=== PATIENT | female | born 2005 | race Caucasian/White ===

== ENCOUNTER 2024-09-08 09:31 | Day surgery (SDC) | payer OTHER, SELFPAY ==
--- OUTSIDE RECORDS SUMMARY | 2024-08-27 14:05 | XMS_ITS | Encounter Summary ---
Author Organization [facility] Address [address] [place] [address] Phone Care Team Providers Care Tile Setter Apprentice Name Role Phone Lizeth Huang MD Primary Care Provider [phone] Reason for Visit * Reason Comments Med Refill Encounter Details Date Type Department Care Team (Late st Contact Info) Description 06/30/2019 Refill [facility] - [place] [address] [place], [place] [id number] Felicitas Hsieh MD [address] [place] [address] Current moderate episode of major depressive disorder without prior episode Social History Tobacco Use Types Packs/Day Years Used Date Smoking Tobacco: Never Smokeless Tobacco: Never Hunger/Food Answer Date Recorded No 05/12/2018 Stable Housing Answer Date Recorded No 03/27/2019 Transportation Concerns Answer Date Rec orded No 05/12/2018 Hazards in Home Answer Date Recorded No 05/12/2018 Financing Utilities Answer Date Recorde d No 05/12/2018 Safety at Home Answer Date Recorded No 05/12/2018 Outside Support Answer Date Recorded No 05/12/2018 Understanding Health Concerns Answer Da te Recorded No 05/12/2018 Financing Health Concerns Answer Date R ecorded No 05/12/2018 Missing School or Work Answer Date Jagdeep rded No 05/12/2018 Comments No Sex and Gender Information Value Date Recorded Sex Assigned at Not on file Legal Sex Female 6:14 PM EDT Gender Identity Not on file Sexual Orientation Don't know 11/08/2022 9: 10 AM EDT documented as of this encounter Miscellaneous Notes * Telephone Encounter - Qing Oro LPN - 07/06/2019 11:55 AM EDT Last filled 06/22 sertraline documented in this encounter Plan of Treatment Not on file documented as of this encounter Visit Diagnoses Diagnosis Current moderate episode of major depressive disorder without prior episode documented in this encounter Care Teams Tile Setter Apprentice Relationship Specialty Start Date End Date Lizeth Huang MD [address] [place] [address] PCP - General Pediatrics 03/04/22 09/30/23 documented as of this encounter
[2024-09-08] VITALS (7 sets, daily range): BP systolic 98–109; BP diastolic 59–70; PULSE 57–71; RESP 14–16; TEMP 36.6; O2SAT 96–98; BMI 35.3
--- NOTE | ~2024-09-08 | FL_ITS ---
EXAMINATION: XR LUMBAR PUNCTURE CLINICAL INFORMATION: Idiopathic Intracranial Hypertension COMPARISON: None available. TECHNIQUE: Following explaining fluoroscopy-guided lumbar puncture procedure, benefits and risk, a written consent was obtained. Patient was placed prone on fluoroscopy table and low back area was cleaned and draped in usual sterile manner. 1% lidocaine was injected at puncture site. A 20-gauge spinal needle was inserted from the left para midline region intrathecally at the L4-5 disc level. After observing CSF return patient was quickly placed in left lateral decubitus view and opening CSF pressure was obtained. Subsequently clear CSF fluid was collected in 4 test tubes and stylet was reintroduced. The needle was then removed. Complete hemostasis was achieved at puncture site. Sterile Band-Aid applied postprocedure. Patient tolerated procedure extremely well. FINDINGS: On preliminary images obtained visualized lumbar vertebral heights , alignment and disc heights are normal. There is a needle positioned at the L4-5 disc level on this image. Opening CSF pressure was 20 cm of water. Approximately 18 mL of clear CSF collected and sent to lab as per referring physician's orders. FLUOROSCOPY TIME: 8 seconds. DOSE AREA PRODUCT: 348.5 uGy-m2 (microgray-meter squared) FL/FL guided lumbar puncture LP IMPRESSION: Successful fluoroscopy-guided left para midline L4-5 lumbar puncture performed as described above.. Electronically signed by: Fabio Villafana MD 09/08/2024 02:05 PM EDT
[2024-09-08 10:28] LABS: MANUAL DIFF FLAG NO
[2024-09-08 10:34] LABS: Basophils Percent Auto 0.4 % (0-2); Eosinophils Absolute Auto 0.1 X10*3/uL (0.0-0.4); Eosinophils Percent Auto 0.8 % (0-4); Hematocrit 39.4 % (37.0-47.0); Hemoglobin 13.2 g/dl (12.0-16.0); Imm Gran Abs Auto 0.02 X10*3/uL (0.00-0.03); Imm Gran Pct Auto 0.3 % (0.0-0.4); Lymphocytes Absolute Auto 2.7 X10*3/uL (1.2-4.9); Lymphocytes Percent Auto 35.3 % (20-40); Mean Corpuscular HGB Conc 33.5 g/dl (31.0-35.0); Mean Corpuscular Hemoglobin 31.1 pg (27.0-33.0); Mean Corpuscular Volume 92.9 fL (80.0-98.0); Mean Platelet Volume 9.7 fL (9.4-12.3); Monocytes Absolute Auto 0.6 X10*3/uL (0.1-1.2); Monocytes Percent Auto 8.2 % (2-11); Neutrophils Absolute Auto 4.2 x10*3/uL (2.0-8.3); Platelet Count 297 X10*3/uL (160-400); Red Blood Count 4.24 X10*6/uL (4.20-5.50); Red Cell Distribution Width 12.6 % (11.0-16.0); White Blood Count 7.5 X10*3/uL (4.8-10.8)
[2024-09-08 10:38] LABS: INTERNATIONAL NORM RATIO 1.1 (0.9-1.1)
[2024-09-08 10:40] LABS: Partial Thromboplastin Time 32.6 SEC (26.0-36.8)
[2024-09-08 10:45] LABS: Anion Gap 12 (12-20); Blood Urea Nitrogen 12 mg/dL (9-16); Calcium 9.3 mg/dL (8.4-10.2); Carbon Dioxide 24 mmol/L (22-29); Chloride 109 mmol/L (96-108); Creatinine Clr Calc Pharmacy 154.8; Estimated Glomerular Filt Rate > 60; Glucose Random 87 mg/dL (60-115); Potassium 3.8 mmol/L (3.3-5.1); Sodium 141 mmol/L (135-145)
[2024-09-08 12:30] LABS: CSF Appearance Clear, Colorless; CSF Tube # 1
[2024-09-08 12:37] LABS: Glucose CSF 53 mg/dL; Total Protein CSF 19.8 mg/dL (15-45)
[2024-09-08 13:05] LABS: Appearance CSF CLEAR; CSF Tube # 4
[2024-09-08 13:06] LABS: Color CSF COLORLESS; Red Blood Cell CSF 0 MM*3; White Blood Cell CSF 0 MM*3
[2024-09-08] MEDS: Acetaminophen 325 MG TABLET 650 MG PO (13:21)
== END 2024-09-08 13:38 | disposition home or self-care (01) ==
PROVIDERS: Radiology Diagnostic Radiology; PCP Internal Medicine; Visit Provider Psychiatry & Neurology Neurology
PROC: 009U3ZZ Drainage of Spinal Canal, Percutaneous Approach (ICD-10-PCS; CPT 62270; principal; 2024-09-08 11:00)
DX: G93.2 Benign intracranial hypertension (principal); R26.9 Unspecified abnormalities of gait and mobility; M54.9 Dorsalgia, unspecified; G44.209 Tension-type headache, unspecified, not intractable; H93.19 Tinnitus, unspecified ear; R11.0 Nausea; R63.5 Abnormal weight gain; F32.A Depression, unspecified; F41.9 Anxiety disorder, unspecified; Z79.899 Other long term (current) drug therapy
CPT/HCPCS: 36415; 62328; 80048; 82945; 84157; 85025; 85610; 85730; 87015; 87070; 87116; 87205; 87206; 89051; J2003

== ENCOUNTER → 2024-09-08 11:10 | Outpatient (BNV) | payer OTHER, SELFPAY | PROVIDERS: PCP Internal Medicine; Visit Provider Radiology Diagnostic Radiology | DX: G93.2 Benign intracranial hypertension (principal) | CPT/HCPCS: 62328 ==

== ENCOUNTER 2024-09-13 12:45 | Emergency (ER) | payer OTHER, SELFPAY ==
--- NOTE | 2024-09-13 13:02 | ED_ITS ---
HPI - Headache General Chief Complaint: Headache Stated Complaint: Headaches Lumbar Puncture on 09/08/24 Time Seen by Provider: 09/13/24 16:04 History of Present Illness ED Provider: Jose Manuel Norwood MD HPI Narrative: This is a pleasant 19-year-old female who has had a headache for 6 days of different character. She previously has had chronic headaches for many years. She was evaluated about 6 days ago here by Interventional Radiology with a fluoroscopy guided lumbar puncture. She reports a pressure of 20 which was reassuring. Since that time she has had positional changes causing worsening headache particularly in the left side. No vomiting, no fever she has some mild left low back pain when lifting her left leg but otherwise no focal signs or symptoms. She has been laying flat taking ibuprofen as instructed but nothing has been helping. Related Data Home Medications ?Medication ?Instructions ?Recorded ?Confirmed hydroxyzine HCl 10 mg tablet 10 mg PO TID PRN Panic At tack(S) 09/08/24 09/08/24 sertraline 100 mg tablet 100 mg PO DAILY 09/08/24 topiramate 25 mg tablet 25 mg PO DAILY 09/08/2408/22 Allergies Allergy/AdvReac Type Severity Reaction Status Date / Time No Known Allergies Allergy Verified 09/13/24 13:07 [facility] Past Medical History Medical History (Updated 09/14/24 @ 00:01 by Tian Giron) Scoliosis Anxiety Depression Social History Social History Are you a primary residential care facility manager to a significant other at home: No Do you presently have visiting nurse or other home services: No Patient Tobacco Use Status: Never used Tobacco Advance Directives: No Advance Directives Information Provided: No Physical Exam 2 Vital Signs: Vital Signs: Last Vital Signs Temp 98.8 F 09/13/24 20:26 Pulse 94 09/13/24 20:26 Resp 18 09/13/24 20:26 BP 118/83 09/13/24 20:26 Pulse Ox 96 09/13/24 20:26 O2 Del Method Room Air 09/13/24 20:26 BMI result Body Mass Index 35.8 Const: Other: GENERAL: Well appearing. No apparent distress. Alert. HEAD/NECK: Normal to inspection. Neck supple. No cervical lymphadenopathy. EYES: Normal to inspection. Sclera non-icteric. ENMT: External nose normal. RESPIRATORY: Respiratory effort normal. Lungs clear to auscultation bilaterally. CARDIOVASCULAR: Regular rate. Normal rhythm. No murmur. No rubs. GI: Soft, non-tender, non-distended. No rebound or guarding. No masses palpable. No hepatosplenomegaly. SKIN: No jaundice. NEUROLOGICAL: Alert. PSYCHIATRIC: Alert. Appearance appropriate for situation. Attitude cooperative. OTHER: Comprehensive Neuro exam: Face symmetric, tongue midline, strong symmetric eye closure, pupils symmetric and reactive to light, intact sensation to the face throughout, intact strong face deviation and shoulder shrug. Sensation intact to light touch throughout * 5 out of 5 strength in bilateral upper extremities, 5 and 5 strength in lower extremities Course Course Course Narrative: This is an RME: Additional HPI, ROS, PE not included below will be deferred to primary provider. RME assessment and note performed by: Josseline Vargas PA-C This is a 27-bfss-rjf-female, with a hx of headaches, who presents to the ER with a complaint of headache s/p lumbar puncture on 09/08. Reporting since Friday she has had severe headaches. No vomiting. She went to [facility] where they did a LP. She had a diagnostic LP for intracranial hypertension Plan: Labs, further ER eval needed Medications Administered Discontinued Medications Generic Name Dose Route Start Last Admin Trade Name Freq PRN Reason Stop Dose Admin Acetaminophen/Butalbital/Caffeine 1 tab 09/13/24 17:25 09/13/24 17:33 Butalb/Acetamin/Caff 50/325/40 Tablet PO 09/13/24 17:26 1 tab ONCE ONE Administration Dexamethasone Sodium Phosphate 10 mg 09/13/24 16:19 09/13/24 16:47 Dexamethasone Sod Phosphate 10 Mg/Ml Vial IVPUSH 09/13/24 16:20 10 mg ONCE ONE Administration Lactated Ringer's 2,000 mls @ 999 mls/hr 09/13/24 16:30 09/13/24 16:47 Lr IV 09/13/24 18:30 999 mls/hr .Q2H1M CHRISTO Administration Ketorolac Tromethamine 15 mg 09/13/24 16:19 09/13/24 16:47 Ketorolac Tromethamine 15 Mg/Ml Vial IVPUSH 09/13/24 16:20 15 mg ONCE ONE Administration Metoclopramide HCl 10 mg 09/13/24 16:19 09/13/24 16:47 Metoclopramide Hcl 10 Mg/2 Ml Vial IVPUSH 09/13/24 16:20 10 mg ONCE ONE Administration Medical Decision Making Medical Decision Making [facility] Narrative: 19-year-old female with likely post LP headache. Multimodal analgesia including recommended butalbital by anesthesia. Patient was aggressively hydrated. Dr. Causey was consulted he performed blood patch at the bedside. The patient reported relief. Differential Diagnosis Differential Diagnoses: The differential diagnosis associated with the presentation includes Post lumbar puncture headache, dural CSF leak, less likely bleeding or infection given no signs or symptoms to suggest this Admission/Observation Consideration of admission/observation: Escalation of care including admission/observation considered Consult Healthcare Provider Management of the patient was discussed with: Recreation Specialist (Anesthesia was consulted see their documentation they performed blood patch) Lab Data [facility] Lab Attestation statement: I reviewed the patient's lab results. 09/13/24 14:17 09/13/24 14:17 Labs: Lab Results 09/13/24 Range/Units 14:17 WBC 9.5 (4.8-10.8) X10*3/uL RBC 4.54 (4.20-5.50) X10*6/uL Hgb 14.0 (12.0-16.0) g/dl Hct 41.3 (37.0-47.0) % MCV 91.0 (80.0-98.0) fL MCH 30.8 (27.0-33.0) pg MCHC 33.9 (31.0-35.0) g/dl RDW 13.0 (11.0-16.0) % Plt Count 317 (160-400) X10*3/uL MPV 9.5 (9.4-12.3) fL Immature Gran % (Auto) 0.4 (0.0-0.4) % Neut % (Auto) 70.3 (45-73) % Lymph % (Auto) 22.9 (20-40) % [place] % (Auto) 5.5 (2-11) % Eos % (Auto) 0.6 (0-4) % Baso % (Auto) 0.3 (0-2) % Lymph # (Auto) 2.2 (1.2-4.9) X10*3/uL [place] # (Auto) 0.5 (0.1-1.2) X10*3/uL Eos # (Auto) 0.1 (0.0-0.4) X10*3/uL Baso # (Auto) 0.0 (0.0-0.2) X10*3/uL Abs Immat Gran (auto) 0.04 H (0.00-0.03) X10*3/uL Absolute Neuts (auto) 6.6 (2.0-8.3) x10*3/uL Absolute Nucleated RBC 0.000 (0.0-0.012) X10*3/uL Nucleated RBC % (auto) 0.0 (0.0-0.2) /100WBC PT 12.2 (10.9-12.4) SEC INR 1.1 (0.9-1.1) APTT 33.2 (26.0-36.8) SEC Sodium 141 (135-145) mmol/L Potassium 4.2 (3.3-5.1) mmol/L Chloride 110 H (96-108) mmol/L Carbon Dioxide 23 (22-29) mmol/L Anion Gap 12 (12-20) BUN 6 L (9-16) mg/dL Creatinine 0.53 (0.5-1.4) mg/dL Estim Creat Clear Calc 161.8 Estimated GFR > 60 Random Glucose 114 (60-115) mg/dL Calcium 9.6 (8.4-10.2) mg/dL Total Bilirubin 0.3 (0.0-1.0) mg/dL Direct Bilirubin 0.1 (0.0-0.5) mg/dL AST 15 (5-31) U/L ALT 21 (0-31) U/L Alkaline Phosphatase 111 (39-117) U/L Total Protein 7.2 (6.5-8.0) g/dL Albumin 4.6 (3.5-5.0) g/dL Beta HCG, Quant < 2 mIU/mL Discharge Plan Discharge Clinical Impression: Post lumbar puncture headache Patient Disposition: Home, Self-Care Instructions: Epidural Blood Patch (DC), Lumbar Puncture (ED) Additional Instructions: _ DISCHARGE DIAGNOSES: Post lumbar puncture headache, you received a blood patch as treatment in the emergency department HISTORY OF PRESENTATION: ?Headache for about 6 days since lumbar puncture EMERGENCY DEPARTMENT COURSE,TESTS, TREATMENTS: While in the ED today you received 2 L of lactated ringer IV fluids. He received multiple medications including dexamethasone a steroid, ketorolac nonsteroidal anti-inflammatory, metoclopramide headache and nausea agent and butalbital which contains caffeine and acetaminophen. You received a blood patch from Anesthesiology DISCHARGE MEDICATIONS: ?[We have made no changes to your regular medication regimen] FOLLOW-UP: ?Call your primary or general physician soon as possible to discuss your symptoms, your ED visit and to discuss follow up plans Call Neurology for follow up INSTRUCTIONS ?& RETURN PRECAUTIONS: If any symptoms change first call your primary physician, if it is after-hours your primary doctors office should have a provider solar consultant you can speak with. If the symptoms are severe or very concerning to you then call 911 or return to the ED. Drink plenty of fluids call for severe worsening headache very stiff neck high fevers or other symptoms that are acute and severe Jose Manuel Norwood MD Emergency Physician [facility] Prescriptions: No Action sertraline 100 mg tablet 100 mg PO DAILY topiramate 25 mg tablet 25 mg PO DAILY hydroxyzine HCl 10 mg tablet 10 mg PO TID PRN (Reason: Panic Attack(S)) Interventions: ED Discharge Assessment Last Done: 09/13/24 20:26 Discharge Date/Time: 09/13/24 20:28 Print Language: Uzbek
[2024-09-13 13:04] VITALS: BP 120/70; PULSE 89; RESP 18; TEMP 36.8; O2SAT 98; BMI 35.8
[2024-09-13 14:22] LABS: MANUAL DIFF FLAG NO
[2024-09-13 14:27] LABS: Basophils Percent Auto 0.3 % (0-2); Eosinophils Absolute Auto 0.1 X10*3/uL (0.0-0.4); Eosinophils Percent Auto 0.6 % (0-4); Hematocrit 41.3 % (37.0-47.0); Imm Gran Abs Auto 0.04 X10*3/uL (0.00-0.03); Imm Gran Pct Auto 0.4 % (0.0-0.4); Lymphocytes Absolute Auto 2.2 X10*3/uL (1.2-4.9); Lymphocytes Percent Auto 22.9 % (20-40); Mean Corpuscular HGB Conc 33.9 g/dl (31.0-35.0); Mean Corpuscular Hemoglobin 30.8 pg (27.0-33.0); Mean Platelet Volume 9.5 fL (9.4-12.3); Monocytes Absolute Auto 0.5 X10*3/uL (0.1-1.2); Monocytes Percent Auto 5.5 % (2-11); Neutrophils Absolute Auto 6.6 x10*3/uL (2.0-8.3); Neutrophils Percent Auto 70.3 % (45-73); Platelet Count 317 X10*3/uL (160-400); Red Blood Count 4.54 X10*6/uL (4.20-5.50); White Blood Count 9.5 X10*3/uL (4.8-10.8)
[2024-09-13 14:37] LABS: INTERNATIONAL NORM RATIO 1.1 (0.9-1.1); Prothrombin Time 12.2 SEC (10.9-12.4)
[2024-09-13 14:39] LABS: Partial Thromboplastin Time 33.2 SEC (26.0-36.8)
[2024-09-13 14:46] LABS: Alanine Aminotransferase 21 U/L (0-31); Albumin Level 4.6 g/dL (3.5-5.0); Alkaline Phosphatase 111 U/L (39-117); Anion Gap 12 (12-20); Aspartate Amino Transferase 15 U/L (5-31); Bilirubin Direct 0.1 mg/dL (0.0-0.5); Bilirubin Total 0.3 mg/dL (0.0-1.0); Blood Urea Nitrogen 6 mg/dL (9-16); Calcium 9.6 mg/dL (8.4-10.2); Carbon Dioxide 23 mmol/L (22-29); Chloride 110 mmol/L (96-108); Creatinine Clr Calc Pharmacy 161.8; Estimated Glomerular Filt Rate > 60; Glucose Random 114 mg/dL (60-115); HCG Quantitative < 2 mIU/mL; Potassium 4.2 mmol/L (3.3-5.1); Sodium 141 mmol/L (135-145); Total Protein 7.2 g/dL (6.5-8.0)
[2024-09-13 15:44] VITALS: BP 111/59; PULSE 71; RESP 16; TEMP 36.3; O2SAT 97
[2024-09-13] MEDS: Lactated Ringers 2,000 ML 999 ML IV (16:47)
[2024-09-13] MEDS: dexAMETHasone sod phosphate 10 MG/ML VIAL IVPUSH (16:47)
[2024-09-13] MEDS: Ketorolac Tromethamine 15 MG/ML VIAL IVPUSH (16:47)
[2024-09-13] MEDS: Metoclopramide HCl 10 MG/2 ML VIAL IVPUSH (16:47)
--- OUTSIDE RECORDS SUMMARY | 2024-09-13 17:17 | XMS_ITS | Encounter Summary ---
Author Organization [facility] Address [address] [place] [address] Phone Care Team Providers Care Mapping Pilot Name Role Phone Lizeth Huang MD Primary Care Provider [phone] Reason for Visit * Reason Comments Med Refill Encounter Details Date Type Department Care Team (Late st Contact Info) Description 06/30/2019 Refill [facility] - [place] [address] [place], [place] [phone] Felicitas Hsieh MD [address] [place] [address] Current moderate episode of major depressive disorder [...] episode documented in this encounter Care Teams Mapping Pilot Relationship Specialty Start Date End Date Lizeth Huang MD [address] [place] [address] PCP - General Pediatrics 03/04/22 09/30/23 documented as of this encounter
[2024-09-13] MEDS: Butalb/Acetamin/Caff 50/325/40 TABLET 1 TAB PO (17:33)
--- NOTE | 2024-09-13 18:43 | PC.NURSE ---
accompanied dr cornelius for blood patch procedure, pt on full telemetry monitoring, post procedure is now headache free. VSS. AA&Ox4.
[2024-09-13 18:44] VITALS: BP 121/81; PULSE 92; RESP 15; O2SAT 97
--- NOTE | 2024-09-13 18:55 | PM.ANESPROC ---
Procedures Date of Service Date of Service: 09/13/24 Abscess I/D Consent for Procedure: Elective - informed consent obtained Site: back Sedation/analgesia: none Anesthetic used: lidocaine 1% Lumbar Puncture Lumbar Puncture Comments: Lumbar epidural blood patch for intractable, positional postdural spinal headache for six days. Sitting up ignites severe, left sided XIAO radiating to the back of the neck. After ED medicated her, her XIAO was 6/10 only , less than at home. She had to stay in bed since her spinal tap. Consent for Procedure: Elective - informed consent obtained Time out performed: Yes Patient position: other (sitting) Skin prep: Povidone-Iodine 1% Local anesthetic used: Lidocaine 1% Amount of anesthesia used (ml): 5 Interspace used: L3-L4 (#18g Tuohy needle, epidural space at 5 cm deep w JJ, then 14 ml blood was drawn from R antecub. vein and injected in epidural space.Xiao disappered, no immediate compl.e) Complications: none
[2024-09-13 19:02] VITALS: BP 110/67; PULSE 76; RESP 14; TEMP 36.6; O2SAT 94
[2024-09-13 20:19] VITALS: BP 118/83; PULSE 94; RESP 18; TEMP 37.1; O2SAT 96
[2024-09-13 20:26] VITALS: BP 118/83; PULSE 94; RESP 18; TEMP 37.1; O2SAT 96
== END 2024-09-13 20:28 | disposition home or self-care (01) ==
PROVIDERS: Physician Assistant Medical; Emergency Provider Emergency Medicine; PCP Internal Medicine
DX: G97.1 Other reaction to spinal and lumbar puncture (principal); R51.9 Headache, unspecified; R10.2 Pelvic and perineal pain; M54.50 Low back pain, unspecified; Z79.899 Other long term (current) drug therapy
CPT/HCPCS: 36415; 80048; 80076; 84702; 85025; 85610; 85730; 96374; 96375; 99284; J1100; J1885; J2765; J7120

== ENCOUNTER 2024-09-27 10:32 | Outpatient (AMB) | payer OTHER, SELFPAY ==
--- NOTE | 2024-09-27 10:34 | A.OFFVIS_ITS ---
Intake Visit Reasons: f/u after LP Allergies No Known Allergies Allergy (Verified 09/13/24 13:07) HPI Comments Details: 19 years old right-handed woman, initially seen in July of 2024 for an abnormal MRI of brain. She was having headaches for as long as she could remember.? She started taking amitriptyline probably in 2022.? During this time, she has gained some weight.? She noted worsening of headaches during at least half days in a month.? Pain was bifrontal and behind the eyes, a radiating type, worse with light, associated with nausea and could last for hours.? There was no double vision or loss of vision.? Coughing or sneezing could make her headache worse.? Did not create headache.? She also complained of ringing in her ear.she had complained of back pain with previous history of head injury and had MRI of the whole spine done, which did not reveal any significant pathology.? MRI of brain was done that revealed multiple findings suggestive of high intracranial pressure. Lumbar puncture at [facility] in August of 2024 revealed opening pressure of 20 cm with CSF protein of 19 and otherwise no significant abnormality. Unfortunately it resulted in spinal headache and she had to have a blood patch to counter that headache. Now, her overall headache burden has decreased and she was taking topiramate 25 mg a day. [facility] Medical History (Updated 09/27/24 @ 10:44 by Joseph Marino MD) Idiopathic intracranial hypertension Scoliosis Anxiety Depression Family History (Updated 09/22/24 @ 18:20 by Hannah Ulrich MA) Father Headache Social History Are you a primary care nurse rn to a significant other at home: No Do you presently have visiting nurse or other home services: No Patient Tobacco Use Status: Never used Tobacco Review of Systems Const Details: Constitutional:?No fever, chills, fatigue, weight loss, or night sweats. HEENT:?No headache, vision changes, hearing loss, nasal congestion, sore throat. Neurological:?No dizziness, syncope, seizures, numbness, tingling, weakness, tremors, memory loss. Psychiatric:?No anxiety, depression, mood swings, sleep disturbance, or hallucinations. Endocrine:?No heat/cold intolerance, polydipsia, polyuria, or hair/skin changes. Hematologic/Lymphatic:?No easy bruising, bleeding, or lymphadenopathy. Integumentary (Skin):?No rash, lesions, itching, or color changes. ? Physical Exam Neuro Other: Mental Status: Alert and oriented to person, place, and time. Normal attention. Normal spontaneous speech, fluency, and comprehension. No obvious issues with mood and memory. Affect is appropriate. Cranial Nerves: CN II: Visual marrero full to confrontation, visual acuity intact. CN III, IV, : Pupils equal, round, reactive to light and accommodation. Extraocular movements are normal. CN V: Facial sensation is normal. CN VII: Facial movements symmetrical. CN VIII: Hearing intact to bedside conversation is normal. CN IX, X: Palate elevates symmetrically. CN XI: Shoulder shrug and head turn symmetrical. CN XII: Tongue midline without atrophy or fasciculations. Motor: Bulk and tone normal in all extremities. No significant muscle weakness in arms and legs. No drift. Reflexes: Deep tendon reflexes 2+ and symmetric. Plantar response down-going bilaterally. Coordination: [id number] and [id number]-jq-[id number] testing normal. No dysmetria. Gait and Station: No obvious gait abnormality. No ataxia or instability. Sensory: Intact to light touch, pinprick, and vibration. Romberg is negative. Extrapyramidal: Full facial expressions and blinking. No rigidity. Movements are appropriate with no tremor or abnormality. Speech: Normal; no dysarthria or tremor. Assessment & Plan Assessment & Plan (1) Migraine without aura: Comment: Meds tried: Amitryptiline, topiramate MRI brain [facility]WO at [facility] in May 2024: Empty sella, mild bifrontal cortical atrophy MRI C + T + L spine at [facility] in May 2024: No sig finding (reported) LP at [facility] in August 2024: OP 20cm, WBCs 0, RBCs 0, Glu 57, Pro 19 Code(s): G43.009 - Migraine without aura, not intractable, without status migrainosus Category: Medical Qualifiers: Status migrainosus presence: without status migrainosus Intractability: intractable Qualified Code(s): G43.019 - Migraine without aura, intractable, without status migrainosus Plan At this time there was no evidence of high intracranial pressure. Headaches were probably migraine type as her imaging was okay not providing any other explanation. She was advised to increase dose of topiramate 250 mg a day as it was already helping. Medications: New topiramate 50 mg PO DAILY 90 tabs 0RF 90 days Coding Level of Care Code Est Pt Level 4 (70718) Diagnoses Intractable migraine without aura and without status migrainosus G43.019 Status migrainosus presence: without status migrainosus Intractability: intractable
--- OUTSIDE RECORDS SUMMARY | 2024-09-27 11:22 | XMS_ITS | Encounter Summary ---
Author Organization [facility] Address [address] [place] [address] Phone Care Team Providers Care Second Cook And Baker Name Role Phone Lizeth Huang MD Primary Care Provider [phone] Reason for Visit * Reason Comments Med Refill Encounter Details Date Type Department Care Team (Late st Contact Info) Description 06/30/2019 Refill [facility] - [place] [address] [place], [place] [phone] Felicitas Hsieh MD [address] [place] [address] Current moderate episode of major depressive disorder [...] episode documented in this encounter Care Teams Second Cook And Baker Relationship Specialty Start Date End Date Lizeth Huang MD [address] [place] [address] PCP - General Pediatrics 03/04/22 09/30/23 documented as of this encounter
== END 2024-09-27 10:51 | disposition home or self-care (01) ==
LOC: HO.HSM 10:33
PROVIDERS: PCP Internal Medicine; Visit Provider Psychiatry & Neurology Neurology
DX: G43.019 Migraine without aura, intractable, without status migrainosus (principal)
CPT/HCPCS: 99214

== ENCOUNTER 2025-02-14 15:28 | Outpatient (AMB) | payer BC, SELFPAY ==
--- NOTE | 2025-02-14 15:38 | A.OFFVIS_ITS ---
Intake Visit Reasons: 2M MIGRAINE Allergies No Known Allergies Allergy (Verified 09/13/24 13:07) HPI Comments Details: 19 years old right-handed woman with migraine without aura. She is presenting for follow-up on headache management. The patient has been taking a 50 mg pill at night as a prophylactic measure, which initially provided some relief, but the headaches have since returned. The patient reports using Excedrin for acute headache treatment. The patient has also noticed an increased pressure behind the eyes over the past week. The patient denies . [facility] Medical History (Updated 02/14/25 @ 15:45 by Joseph Marino MD) Idiopathic intracranial hypertension Scoliosis Anxiety Depression Family History (Updated 09/22/24 @ 18:20 by Hannah Ulrich MA) Father Headache Social History Are you a primary patient care director to a significant other at home: No Do you presently have visiting nurse or other home services: No Patient Tobacco Use Status: Never used Tobacco Review of Systems Narrative - Neurological: Reports recurrent headaches and increased pressure behind the eyes within the last week. Physical Exam Neuro Other: Mental Status: Alert and oriented to person, place, and time. Normal attention. Normal spontaneous speech, fluency, and comprehension. Cranial Nerves: CN II: Visual marrero full to confrontation, visual acuity intact. CN III, IV, : Pupils equal, round, reactive to light and accommodation. Extraocular movements are normal. CN V: Facial sensation is normal. CN VII: Facial movements symmetrical. CN VIII: Hearing intact to bedside conversation is normal. CN IX, X: Palate elevates symmetrically. CN XI: Shoulder shrug and head turn symmetrical. CN XII: Tongue midline without atrophy or fasciculations. Extrapyramidal: Full facial expressions and blinking. No rigidity. Movements are appropriate with no tremor or abnormality. Speech: Normal; no dysarthria or tremor. Assessment & Plan Assessment & Plan (1) Idiopathic intracranial hypertension: Code(s): G93.2 - Benign intracranial hypertension Category: Medical (2) Migraine without aura: Comment: Meds tried: Amitriptyline, topiramate, smatriptan MRI brain WWO at [facility] in May 2024: Empty sella, mild bifrontal cortical atrophy MRI C + T + L spine at [facility] in May 2024: No sig finding (reported) LP at [facility] in August 2024: OP 20cm, WBCs 0, RBCs 0, Glu 57, Pro 19 Code(s): G43.009 - Migraine without aura, not intractable, without status migrainosus Category: Medical Qualifiers: Status migrainosus presence: without status migrainosus Intractability: intractable Qualified Code(s): G43.019 - Migraine without aura, intractable, without status migrainosus Plan Impression recommendations: 19 years old woman with migraine without aura. Topiramate has made some difference but she was still having some headaches. She was asked to experiment topiramate 50 mg twice a day in try sumatriptan 50 mg as needed. Medications: New sumatriptan succinate 50 mg orally qd prn for headache PRN; do not exceed 4 doses per 24 hrs 10 tabs 5RF migraine headache Changed From topiramate 50 mg PO DAILY 90 days 90 tabs 0RF To topiramate 50 mg PO BID 180 tabs 0RF 90 days Coding Level of Care Code Est Pt Level 3 (58105) Diagnoses Idiopathic intracranial hypertension G93.2 Intractable migraine without aura and without status migrainosus G43.019 Status migrainosus presence: without status migrainosus Intractability: intractable
--- OUTSIDE RECORDS SUMMARY | 2025-02-14 20:04 | XMS_ITS | Encounter Summary ---
Author Organization [facility] Address [address] [place] [address] Phone Care Team Providers Care Web Machine Tender Name Role Phone Lizeth Huang MD Primary Care Provider [phone] Reason for Visit * Reason Onset Date Comments Med Refill 11/27/2020 Encounter Details Date Type Department Care Team (Late st Contact Info) Description 11/27/2020 Refill Pediatric And Adolescent Medicine - [address] [address] Felicitas Hsieh MD [address] [place] [address] Moderate episode of recurrent major depressive disorder Social History Tobacco Use Types Packs/Day Years Used Date Smoking Tobacco: Never Smokeless Tobacco: Never Hunger/Food Answer Date Recorded In the last 12 months, did y ou or your family ever eat less than you felt you should because there wasn't enough money for food? No 07/05/2020 Stable Housing Answer Date Recorded Are you worried that in the next 2 months you may not have stable housing? No 07/05/2020 Transportation Concerns Answer Date Rec orded In the last 12 months, have you or your family ever had to go without healthcare because you didn't have a way to get there? No 07/05/2020 Hazards in Home Answer Date Recorded Think about the place you li ve. Do you have problems with any of the following? Pests (mice or roaches), mold, no/not working smoke detectors, water leaks, no window guards. No 2020 Financing Utilities Answer Date Recorde d In the last 12 months, has t he electric, gas, oil, or water company threatened to shut off your services in your home? No 07/05/2020 Safety at Home Answer Date Recorded Are you or your family worried about feeling saf e in your home? No 07/05/2020 Outside Support Answer Date Recorded Do you feel that you need mo re support from other people or programs to help you care for yourself or your family? No 07/05/2020 Understanding Health Concerns Answer Da te Recorded Do you need help understandi ng your or your child's healthcare needs (diagnosis, medications, plan, etc.)? No 07/05/2020 Financing Health Concerns Answer Date R ecorded In the last 12 months, was t here a time when your child needed to see a doctor or get medications or supplies but could not because of cost? No 07/05/2020 Missing School or Work Answer Date Jagdeep rded Did you or your child miss s chool or work because of a health problem that could have been avoided? No 07/05/2020 Comments No Sex and Gender Information Value Date Recorded Sex Assigned at Not on file Legal Sex Female 6:14 PM EDT Gender Identity Not on file Sexual Orientation Don't know 11/08/2022 9: 10 AM EDT documented as of this encounter Miscellaneous Notes * Telephone Encounter - Enriqueta Sue LPN - 11/29/2020 1:13 PM EDT Duplicate med request--please refuse this one. Other has been routed. documented in this encounter Plan of Treatment Not on file documented as of this encounter Visit Diagnoses Diagnosis Moderate episode of recurrent major depressive disorder documented in this encounter Care Teams Web Machine Tender Relationship Specialty Start Date End Date Lizeth Huang MD [address] [place], [place] [address] [address] PCP - General Pediatrics 03/04/22 09/30/23 documented as of this encounter
--- OUTSIDE RECORDS SUMMARY | 2025-02-14 20:04 | XMS_ITS | Encounter Summary ---
Author Organization [facility] Address [address] [place] [address] Phone Care Team Providers Care Fruit Peeler Name Role Phone Lizeth Huang MD Primary Care Provider [phone] Reason for Visit * Reason Comments Med Refill Encounter Details Date Type Department Care Team (Late st Contact Info) Description 09/11/2021 Refill Pediatric And Adolescent Medicine - [place] [address] [place], [place] [phone] Felicitas Hsieh MD [address] [place] [address] Moderate episode of recurrent major depressive disorder [...] AM EDT documented as of this encounter Plan of Treatment Not on file documented as of this encounter Visit Diagnoses Diagnosis Moderate episode of recurrent major depressive disorder documented in this encounter Care Teams Fruit Peeler Relationship Specialty Start Date End Date Lizeth Huang MD [address] [place] [address] PCP - General Pediatrics 03/04/22 09/30/23 documented as of this encounter
--- OUTSIDE RECORDS SUMMARY | 2025-02-14 20:04 | XMS_ITS | Encounter Summary ---
Author Organization [facility] Address [address] [place] [address] Phone Care Team Providers Care Belt Measurer Name Role Phone Lizeth Huang MD Primary Care Provider [phone] Reason for Visit * Reason Onset Date Comments Med Refill 11/08/2022 Encounter Details Date Type Department Care Team (Late st Contact Info) Description 11/08/2022 Refill Pediatric And Adolescent Medicine - [place] [address] [place] [address] Lizeth Huang MD [address] [place] [address] Moderate episode of recurrent major depressive disorder; Moderate episode of recurrent major depressive disorder Social History Tobacco Use Types Packs/Day Years Used Date Smoking Tobacco: Never Smokeless Tobacco: Never Hunger/Food Answer Date Recorded In the last 12 months, did y ou or your family ever eat less than you felt you should because there wasn't enough money for food? No 11/08/2022 Stable Housing Answer Date Recorded Are you worried that in the next 2 months you may not have stable housing? No 11/08/2022 Transportation Concerns Answer Date Rec orded In the last 12 months, have you or your family ever had to go without healthcare because you didn't have a way to get there? No 11/08/2022 Hazards in Home Answer Date Recorded Think about the place you li ve. Do you have problems with any of the following? Pests (mice or roaches), mold, no/not working smoke detectors, water leaks, no window guards. No 2022 Financing Utilities Answer Date Recorde d In the last 12 months, has t he electric, gas, oil, or water company threatened to shut off your services in your home? No 11/08/2022 Safety at Home Answer Date Recorded Are you or your family worried about feeling saf e in your home? No 11/08/2022 Outside Support Answer Date Recorded Do you feel that you need mo re support from other people or programs to help you care for yourself or your family? No 11/08/2022 Understanding Health Concerns Answer Da te Recorded Do you need help understandi ng your or your child's healthcare needs (diagnosis, medications, plan, etc.)? No 11/08/2022 Financing Health Concerns Answer Date R ecorded In the last 12 months, was t here a time when your child needed to see a doctor or get medications or supplies but could not because of cost? No 11/08/2022 Missing School or Work Answer Date Jagdeep rded Did you or your child miss s chool or work because of a health problem that could have been avoided? No 11/08/2022 Comments No Sex and Gender Information Value Date Recorded Sex Assigned at Not on file Legal Sex Female 6:14 PM EDT Gender Identity Not on file Sexual Orientation Don't know 11/08/2022 9: 10 AM EDT documented as of this encounter Miscellaneous Notes * Telephone Encounter - Marisela Merida RN - 11/08/2022 9:52 AM EDT Per today's visit note, she is due to travel to [facility]. Pharmacy note is asking for a year's supply of hydroxyzine and sertraline. To for review documented in this encounter Plan of Treatment Not on file documented as of this encounter Visit Diagnoses Diagnosis Moderate episode of recurrent major depressive disorder documented in this encounter Care Teams Belt Measurer Relationship Specialty Start Date End Date Lizeth Huang MD [address] [place] [address] PCP - General Pediatrics 03/04/22 09/30/23 documented as of this encounter
--- OUTSIDE RECORDS SUMMARY | 2025-02-14 20:04 | XMS_ITS | Encounter Summary ---
Author Organization [facility] Address [address] [place] [address] Phone Care Team Providers Care Tonsorial Artist Name Role Phone Lizeth Huang MD Primary Care Provider [phone] Reason for Visit * Reason Comments Med Refill Encounter Details Date Type Department Care Team (Late st Contact Info) Description 11/09/2019 Refill Pediatric And Adolescent Medicine - [place] [address] [place], [place] [phone] Felicitas Hsieh MD [address] [place] [address] Generalized anxiety disorder Social History Tobacco Use Types Packs/Day [...] encounter Miscellaneous Notes * Telephone Encounter - Renee Elizondo RN - 11/09/2019 2:46 PM EDT Dosage changed to 100 mg at last visit documented in this encounter Plan of Treatment Not on file documented as of this encounter Visit Diagnoses Diagnosis Generalized anxiety disorder documented in this encounter Care Teams Tonsorial Artist Relationship Specialty Start Date End Date Lizeth Huang MD [address] [facility] [place] [address] PCP - General Pediatrics 03/04/22 09/30/23 documented as of this encounter
--- OUTSIDE RECORDS SUMMARY | 2025-02-14 20:04 | XMS_ITS | Encounter Summary ---
Author Organization [facility] Address [address] [place] [address] Phone Care Team Providers Care Stator Connector Name Role Phone Lizeth Huang MD Primary Care Provider [phone] Reason for Visit * Reason Comments Med Refill Encounter Details Date Type Department Care Team (Late st Contact Info) Description 06/30/2019 Refill Pediatric And Adolescent Medicine - [place] [address] [place], [place] [phone] Felicitas Hsieh MD [address] [place] [address] Current moderate episode of major depressive disorder [...] episode documented in this encounter Care Teams Stator Connector Relationship Specialty Start Date End Date Lizeth Huang MD [address] [place] [address] PCP - General Pediatrics 03/04/22 09/30/23 documented as of this encounter
--- OUTSIDE RECORDS SUMMARY | 2025-02-14 20:04 | XMS_ITS | Encounter Summary ---
Author Organization [facility] Address [address] [place] [address] Phone Care Team Providers Care Radio Tower Technician Name Role Phone Lizeth Huang MD Primary Care Provider [phone] Reason for Visit * Reason Comments Med Refill Encounter Details Date Type Department Care Team (Late st Contact Info) Description 06/24/2021 Refill Pediatric And Adolescent Medicine - [place] [address] [place], [place] [phone] Felicitas Hsieh MD [address] [place] [address] Moderate episode of recurrent major depressive disorder [...] disorder documented in this encounter Care Teams Radio Tower Technician Relationship Specialty Start Date End Date Lizeth Huang MD [address] [place] [address] PCP - General Pediatrics 03/04/22 09/30/23 documented as of this encounter
--- OUTSIDE RECORDS SUMMARY | 2025-02-14 20:04 | XMS_ITS | Encounter Summary ---
Author Organization [facility] Address [address] [place] [address] Phone Care Team Providers Care Manager Strategic Development Name Role Phone Lizeth Huang MD Primary Care Provider [phone] Reason for Visit * Reason Comments Med Refill Encounter Details Date Type Department Care Team (Late st Contact Info) Description 09/08/2020 Refill Pediatric And Adolescent Medicine - [place] [address] [place], [place] [phone] Felicitas Hsieh MD [address] [place] [address] Moderate episode of recurrent major depressive disorder [...] disorder documented in this encounter Care Teams Manager Strategic Development Relationship Specialty Start Date End Date Lizeth Huang MD [address] [place] [address] PCP - General Pediatrics 03/04/22 09/30/23 documented as of this encounter
--- OUTSIDE RECORDS SUMMARY | 2025-02-14 20:04 | XMS_ITS | Encounter Summary ---
Author Organization [facility] Address [address] [place] [address] Phone Care Team Providers Care Db2 Systems Programmer Name Role Phone Lizeth Huang MD Primary Care Provider [phone] Encounter Details Date Type Department Care Team (Late st Contact Info) Description 01/31/2011 Conversion Encounter Pediatric And Adolescent Medicine - [place] [address] [place] [address] [place] [phone] Social History Tobacco Use Types Packs/Day Years Used Date Smoking Tobacco: Never Assessed Comments Unknown Sex and Gender Information Value Date Recorded Sex Assigned at Not on file Legal Sex Female 6:14 PM EDT Gender Identity Not on file Sexual Orientation Don't know 11/08/2022 9: 10 AM EDT documented as of this encounter Plan of Treatment Not on file documented as of this encounter Visit Diagnoses Not on filedocumented in this encounter Care Teams Db2 Systems Programmer Relationship Specialty Start Date End Date Lizeth Huang MD [address] [place] [address] [place] [address] PCP - General Pediatrics 03/04/22 09/30/23 documented as of this encounter
--- OUTSIDE RECORDS SUMMARY | 2025-02-14 20:04 | XMS_ITS | Encounter Summary ---
Author Organization [facility] Address [address] [place] [address] Phone Care Team Providers Care Granular Operator Name Role Phone Lizeth Huang MD Primary Care Provider [phone] Reason for Visit * Reason Comments Med Refill Encounter Details Date Type Department Care Team (Late st Contact Info) Description 03/27/2020 Refill Pediatric And Adolescent Medicine - [place] [address] [place], [place] [phone] Felicitas Hsieh MD [address] [place] [address] Moderate episode of recurrent major depressive disorder Social History Tobacco Use Types Packs/Day Years Used Date Smoking Tobacco: Never Smokeless Tobacco: Never Hunger/Food Answer Date Recorded No 12/18/2019 Stable Housing Answer Date Recorded No 12/18/2019 Transportation Concerns Answer Date Rec orded No 12/18/2019 Hazards in Home Answer Date Recorded No 02/07/2020 Financing Utilities Answer Date Recorde d No 02/07/2020 Safety at Home Answer Date Recorded No 02/07/2020 Outside Support Answer Date Recorded No 02/07/2020 Understanding Health Concerns Answer Da te Recorded No 02/07/2020 Financing Health Concerns Answer Date R ecorded No 02/07/2020 Missing School or Work Answer Date Jagdeep rded No 02/07/2020 Comments No Sex and Gender Information Value [...] disorder documented in this encounter Care Teams Granular Operator Relationship Specialty Start Date End Date Lizeth Huang MD [address] [facility] [place] [address] PCP - General Pediatrics 03/04/22 09/30/23 documented as of this encounter
--- OUTSIDE RECORDS SUMMARY | 2025-02-14 20:05 | XMS_ITS | Clinical Summary ---
Author Organization [facility] Address [address] [place] [address] Phone Care Team Providers Care Agricultural Research Technician Name Role Phone Unavailable Primary Care Provider Unavailabl e Allergies No known active allergies Medications MELATONIN PO Take by mouth. Active sertraline 100 MG tabletIndication s:Moderate episode of recurrent major depressive disorder Take 1 tablet (100 mg total) by mouth once daily. 90 tablet 2 11/08/2022 Active hydrOXYzine 10 MG tabletIndication s:Moderate episode of recurrent major depressive disorder Take 1 tablet (10 mg total) by mouth 3 (three) times a day as needed for anxiety. 30 tablet 1 11/08/2022 Active albuterol HFA 108 (90 Base) MCG/ACT inhaler 01/27/2023 Act ashley benzonatate 200 MG capsule 01/27/2023 Active amitriptyline 10 MG tabletIndication s:Migraine without aura and without status migrainosus, not intractable Take 1 tablet (10 mg total) by mouth nightly. 90 tablet 06/03/2023 Active Active Problems Problem Noted Date Diagnosed Date Acanthosis nigricans 05/31/2020 Overview (05/31/2020): mild- trial of retin A cream Chronic nonintractable headache 04/14/2020 Assessment & Plan (11/08/2022 8:54 AM EDT): Continues with the headaches, 3-4 times weekly. Usually takes Excedrin which seems to help. Sleeping tends to help the pain. Mother and father hx of migraines daily. Generalized anxiety disorder 06/22/2019 Assessment & Plan (11/08/2022 8:56 AM EDT): Feels like there are not many stressors at this time. She is anxious about moving to college ( [employer]). Currently in therapy routinely, sertraline 100 mg daily. Takes they hydroxyzine as needed. Tends to take it 1 x month for the summer. Tends to take it more during the school year. 11/07/2022 8:10 PM 11/07/2022 8:08 PM 09/17/2022 8:31 AM Generalized Anxiety Disorder (GAD7) RADHA 7 Score 10 7 8 5-9 mild anxiety; 10-14 moderate anxiety; >15 severe anxiety Major depressive disorder with current active ep isode 06/22/2019 Assessment & Plan (11/08/2022 8:56 AM EDT): Controlled at this time with sertraline 100mg and hydroxyzine. 11/07/2022 8:10 PM 09/17/2022 8:31 AM 02/20/2022 6:07 AM PHQ9 Screen(s) Score 9 11 9 1-4 = Minimal depression, 5-9 = Mild depression, 10-14 = Moderate depression, 15-19 = Moderately severe depression, 20-27 = Severe depression BMI (body mass index), pediatric, 95-99% for age 0205/11/2018 Overview (05/11/2018): discussed need for calorie restriction with healthy choices. Increase exercise Overweight 03/07/2017 Overview (05/07/2018): Overweight (278.02) Onset: 03/07/2017 Added by: Felicitas Hsieh Scoliosis (and kyphoscoliosis), idiopathic 03/06 Overview (07/19/2022): Followed at [facility]. Last visit 07/2017. Not a candidate for bracing. Recheck 6 months. 04/2019-stable and growth has completed- case is closed- core strengthening is discussed Diagnosis load June 2022 Assessment & Plan (11/08/2022 8:51 AM EDT): Last visit with Inder- lucreciaissed 2 years ago. No concerns at this time. Resolved Problems Problem Noted Date Diagnosed Date Resolved Date Memory disturbance 04/14/2020 2 Immunizations Immunization Administration Dates Next Due DTaP 5 08/18/2009, 6,02/05/2005,12/04,2004 H1N1 03/01/2009,01/25/2009 HPV Vaccine 9 Valent 05/11/2018,03/07/2017 Hep A, ped/adol 11/08/2022,08/05/2006,04/02/2006 Hep B, ped/adol 02/05/2005, 5,2004,08/03 Hib (PRP-T) 12/10/2005, 5,2004,10/09 IPV 08/10/2008, 5,2004,10/09 Influenza, injectable, quadr ivalent, preservative free 05/12/2019,05/11/2018,03/07/2017 Influenza, injectable, triva lent, preservative free 01/10/2010,02/05/2005 Influenza, intranasal, quadrivalent 01/12/2014,1 04/07/2012 Influenza, intranasal, trivalent 02/05/2012,01/22 MMR 08/18/2009,12/10/2005 Meningococcal B Trumenba 11/08/2022 Meningococcal Conj (Menactra) MCV4P 10/17/2021,1 05/07/2015 Pneumococcal Conjugate 08/06/2005,2004,2004,10/09 Tdap 03/06/2016 Varicella 08/10/2008,08/06/2005 Family History Medical History Relation Name Comments Hyperlipidemia Maternal Grandfather Hypertension Maternal Grandmother Obesity Maternal Grandmother Hyperlipidemia Paternal Grandfather Hypertension Paternal Grandmother Relation Name Status Comments Maternal Grandfather Maternal Grandmother Paternal Grandfather Paternal Grandmother Social History Tobacco Use Types Packs/Day Years [...] Don't know 11/08/2022 9: 10 AM EDT Last Filed Vital Signs Vital Sign Reading Time Taken Comments Blood Pressure 116/68 06/03/2023 11:17 AM EDT Pulse 88 06/03/2023 11:17 AM EDT Temperature 36.7 C (98 F) 06/03/2023 11:17 AM EDT Respiratory Rate 20 06/03/2023 11:17 AM EDT Oxygen Saturation 98% 06/03/2023 11:17 AM EDT Inhaled Oxygen Concentration - - Weight 80.5 kg (177 lb 8 oz) 06/03/2023 11:17 AM EDT Height 154 cm (5' 0.63 ) 06/03/2023 11:17 AM EDT Body Mass Index 33.95 06/03/2023 11:17 AM EDT Plan of Treatment Health Maintenance Due Date Last Done Comments Men B Vaccine (2 of 2 - Trum enba SCDM 2-dose series) 05/11/2023 11/08/2022 Influenza Vaccines (#1) 2024 05/12/19, 05/11/2018, 03/07/2017, Additional history exists COVID-19 Vaccine (2024-04 6 season) 2024 09/11/2021, 08/27/2020, 08/06/2020 DTaP,Tdap,and Td Vaccines (7 - Td or Tdap) 03/06/2026 03/06/2016, 08/18/2009, 12/10/2005, Additional history exists Hepatitis B Vaccines Completed 02/05/2005, 2004, 2004, Additional history exists Pneumococcal Vaccine Completed 08/06/2005, 02/05/2005, 2004, Additional history exists HIB Vaccines Completed 12/10/2005, 01/22, 2004, Additional history exists IPV Vaccines Completed 08/10/2008, 01/22, 2004, Additional history exists Varicella Vaccines Completed 08/10/2008, 08/06/2005 MMR Vaccines Completed 08/18/2009, 12/10/2005 HPV Vaccines Completed 05/11/2018, 03/07/2017 Meningococcal Vaccine Completed 10/17/2021, 016 Hepatitis A Vaccines Completed 11/08/2022, 08/05/2006, 04/02/2006 Procedures * Due to [place] state law, this organization might not be sharing sensitive test results. Procedure Name Priority Date/Time Associated Diagnosis Comments CHLAMYDIA AND GONORRHEA, AMPLIFIED Routine 10/17/2021 12:27 PM EDT Encounter for screening examination for sexually transmitted disease from Last 3 Months or Most Recently Relevant to Health Maintenance Results * Due to [place] state law, this organization might not be sharing sensitive test results. * Chlamydia and Gonorrhoea, Amplified (Urine) (10/17/2021 12:27 PM EDT) Chlamydia Trachomatis, DNA Probe NEGATIVE (NEG) [facility] Comment: No Chlamydia Trachomatis RNA detected in this patient's sample (REFERENCE RANGE/NORMAL VALUE: NOT DETECTED) Note: This test uses astronomy department chair- mediated amplification method to detect rRNA from C. Trachomatis URINE GC AMP PROBE NEGATIVE (NEG) [facility] Comment: No Neisseria Gonorrhoeae RNA detected in this patient's sample (REFERENCE RANGE/NORMAL VALUE: NOT DETECTED) NOTE: This test uses astronomy department chair-mediated amplification method to detect rRNA from N.Gonorrhoeae. A negative result does not preclude infection. In the case of a negative urine result, testing of an endocervical(female) or urethral (male) specimen is recommended if there is high clinical suspicion of infection. Due to very high sensitivity of Nucleic Acid Amplification Test, false positive results may occur. Therefore, specimen handling is extremely important. In patients in whom the disease is unlikely, additional sample for testing should be considered after an initial positive result. The performance characteristics of this test have not been evaluated in children. The Aptima Combo2 assay is not intended for the evaluation of suspected sexual abuse or for other medico-legal indications. The ordering provider should assess if the patient had consensual sex without risk of sexual abuse. Consult the [facility] if needed. Contact phone number . Therapeutic failure or success cannot be determined with the Aptima Combo2 assay since nucleic acid may persist following appropriate antimicrobial therapy. The Centers for Disease Control and Prevention (CDC) recommends confirmatory retesting using culture or a different nucleic acid amplification test when positive results occur, if indicated. Testing performed or reported by [facility], a Service of [facility], [address] [place] [address] Sergio Uribe MD, Real Estate Salesperson CLIA# [id number] Urine (Urine, Random (not clean void)) 10/17/2021 12:27 PM EDT 10/18/2021 12:54 AM EDT Felicitas Hsieh MD LAB MICROBIOLOGY - GENERAL OR DERABLES Final Result EDDIE from Last 3 Months or Most Recently Relevant to Health Maintenance Insurance [employer]
== END 2025-02-14 15:48 | disposition home or self-care (01) ==
LOC: HO.HSM 15:28
PROVIDERS: PCP Internal Medicine; Visit Provider Psychiatry & Neurology Neurology
DX: G93.2 Benign intracranial hypertension (principal); G43.019 Migraine without aura, intractable, without status migrainosus
CPT/HCPCS: 99213